=== PATIENT | female | born 1960 | race Caucasian/White ===

== ENCOUNTER 2020-01-05 12:55 | Outpatient (REF) | payer MEDICARE, MEDICAID, SELFPAY ==
--- NOTE | 2020-01-05 | MM_ITS ---
EXAMINATION: MM SCREENING DIGITAL BREAST TOMOSYNTHESIS, BILATERAL CLINICAL INFORMATION: Screening. Asymptomatic. The lifetime risk of breast cancer based on the Tyrer-Cuzick Model is 10.3%. COMPARISON: Mammography: August 11, 2012 and studies dating back to January 18, 2008 TECHNIQUE: Digital breast tomosynthesis is performed in both the craniocaudal and mediolateral oblique views along with computer-aided detection (CAD). Synthesized 2D images are generated from the tomosynthesis. FINDINGS: The breasts are heterogeneously dense, which may obscure small masses (ACR BI-RADS breast composition Category c). There are no significant masses, abnormal calcifications, or other abnormalities. MM/MM tomosynthesis screening BI IMPRESSION: There are no significant changes from prior study. ASSESSMENT: BI-RADS 1: Negative RECOMMENDATION: Routine annual mammography screening. This patient's information was entered into a reminder system with a target due date for their next mammogram.
== END 2020-01-05 12:56 | disposition home or self-care (01) ==
LOC: HO.MAMMO 12:55
PROVIDERS: PCP Physician Assistant Medical; Visit Provider Physician Assistant Medical
DX: Z12.31 Encounter for screening mammogram for malignant neoplasm of breast (principal)
CPT/HCPCS: 77063; 77067

== ENCOUNTER → 2020-04-19 08:43 | Outpatient (BNVA) | payer MEDICARE, MEDICAID, SELFPAY | PROVIDERS: PCP Physician Assistant Medical; Visit Provider Internal Medicine Gastroenterology | CPT/HCPCS: Q3014 ==

== ENCOUNTER → 2020-08-16 10:06 | Outpatient (BNVA) | payer MEDICARE, MEDICAID, SELFPAY | PROVIDERS: PCP Physician Assistant Medical; Visit Provider Internal Medicine Gastroenterology | CPT/HCPCS: Q3014 ==

== ENCOUNTER → 2021-03-14 09:31 | Outpatient (BNVA) | payer MEDICARE, MEDICAID, SELFPAY | PROVIDERS: PCP Physician Assistant Medical; Visit Provider Internal Medicine Gastroenterology | DX: K21.9 Gastro-esophageal reflux disease without esophagitis (principal); R13.10 Dysphagia, unspecified | CPT/HCPCS: 99212 ==

== ENCOUNTER → 2022-03-06 11:54 | Outpatient (BNVA) | payer MEDICARE, MEDICAID, SELFPAY | PROVIDERS: PCP Physician Assistant Medical; Referring Provider Physician Assistant Medical; Visit Provider Internal Medicine Gastroenterology | DX: R13.10 Dysphagia, unspecified (principal); K21.9 Gastro-esophageal reflux disease without esophagitis | CPT/HCPCS: 99212 ==

== ENCOUNTER 2022-11-10 07:55 | Day surgery (SDC) | payer MEDICARE, MEDICAID, SELFPAY ==
[2022-11-05 16:42] VITALS: BMI 28.3
[2022-11-10 08:02] VITALS: BMI 28.3
--- NOTE | 2022-11-10 08:08 | HO.ANESPROP2 ---
HPI - Anesthesia Eval Consult details Narrative: 61 yo female patient for EGD PMFSH Active Problems Active Problems: All Active Problems (Updated 11/10/22 @ 08:08 by Carole Tovar MD) Chronic GERD (Acute) Dysphagia (Acute) Past Medical History Medical History GERD (gastroesophageal reflux disease) Family History Family History Maternal Grandmother Cancer Family history of problems with anesthesia: No Surgical History Surgical History History of esophagogastroduodenoscopy (EGD) H/O colonoscopy History of Problems with Anesthesia: No Social History Social History Household Members: Children Alcohol intake: current Alcohol intake frequency: other Tobacco use type: Cigarette Cigarettes Per Day: 1 Advance Directives: No Advance Directives Information Provided: Yes Meds Allergies Allergy/AdvReac Type Severity Reaction Status Date / Time No Known Allergies Allergy Verified 03/06/22 12:07 [No Known Allergies*] Exam Exam Date and Time: November 10, 2022 0808 Height,Weight and Vital Signs: Height 5 ft 3 in Weight 72.575 kg Vital Signs Temp Pulse Resp BP Pulse Ox O2 Del Method 11/10/22 08:35 96.9 F 74 16 140/78 H 98 Room Air Airway Mallampati Class: II TM Dist: >3cm Neck ROM: Full Denture: Upper and Lower Heart: RRR Lungs: CTAB Assessment and Plan Assessment Anesthesia Assessment: Anesthesia Plan Discussed and Chart Reviewed Final Anesthetic Review Family History of Problems with Anesthesia: No History of Problems with Anesthesia: No NPO: Yes ASA Class: II Final Preanesthetic Review: No Changes in Pt Med Stat, Meds/Allgs Chart Reviewed, Consent Obtained/Reviewed and Anes Risks/Benef Reviewed Patient Risk: Low Procedure Risk: Low Assessment/Block/Sedation in SS: Assess/Block/Sedation-SS Anesthetic Plan Anesthetic Plan: MAC: Disposition: Standard PACU
--- NOTE | 2022-11-10 08:31 | MHC.SHP ---
Pre-Procedural Eval Section A Date of Service: 11/10/22 Section B Chief Complaint: gerd,Dysphagia, unspecified Relevant Family History (Specify if Yes): No Relevant Social History: Tobacco Use Present Medications: see Short Stay Collaborative assessment Medical History: Significant History (GERD (gastroesophageal reflux disease)) History of Previous Operations: Relevant previous surgery/procedure and date(s) (egd,colonoscopy) Allergies: Allergies Allergy/AdvReac Type Severity Reaction Status Date / Time No Known Allergies Allergy Verified 03/06/22 12:07 [No Known Allergies*] Review of Systems Sugical H&P ROS: Negative: Constitution, Cardiovascular, Respiratory, Neurological, Psychiatric, Hem-Onc, Allergic/Immunologic, Gastrointestinal, Genitourinary, Musculoskeletal, Integumentary, Endocrine and Eyes/Ears/Nose/Throat Exam Surgical H&P Exam: Normal: HEENT, Normal: Heart, Normal: Lungs, Normal: Extremities, Normal: Abdomen, Normal: Skin and Normal: Neurological Plan Diagnosis/Plan: Unchanged I have reviewed the history and physical and performed a pertinent physical examination on my patient. No changes have occurred unless specified. Time Spent With Patient Time: Total time managing care of this patient today ____ minutes.
[2022-11-10 08:35] VITALS: BP 140/78; PULSE 74; RESP 16; TEMP 36.1; O2SAT 98
[2022-11-10] MEDS: Lactated Ringers 1,000 ML 100 ML IVCONT (08:37)
--- NOTE | 2022-11-10 09:05 | W.PM.OPN ---
Operative Note Operative Note Date of Service: 11/10/22 Narrative: Procedure Description: EGD Indication: satiety, GERD, epigastric pain Anesthesia: MAC FLEXIBLE TRANSORAL UPPER GASTROINTESTINAL ENDOSCOPY UPPER ENDOSCOPY Consent: Indications for the procedure and potential complications of bleeding, perforation, reaction to medications and missed diagnosis were discussed with the patient and informed consent was obtained. Instrument: Olympus GIF H 190 J mid size upper endoscope Monitoring: Vital signs and clinical assessment, continuous EKG monitoring, Pulse oximetry, Carbon Dioxide monitoring and blood pressure monitoring were done throughout the procedure. Procedure: The patient was placed in the left lateral decubitis position and pre-procedure medications were administered and a bite block was placed. The endoscope was inserted into the mouth and advanced under direct vision to the third part of duodenum. A careful inspection was made as the upper endoscope was withdrawn including a retroflexed examination of the proximal stomach; Findings and interventions are described below. Findings: Larynx:normal Esophagus: GE junction at 38 cm, diaphragm hiatus at 38 cm, lower esophagus dilated with ablloon to 20 mm, no tear seen, bx taken from GEJ and distal esophagus Stomach: Patchy gastric erythema. Biopsies were obtained. Grade 2 flap valve on retroflexed examination of the cardia. Pylorus seemed tight and was stretched with balloon over wire to 20 mm-no tear seen Duodenum: Normal bulb and descending duodenum, bx taken Intervention: Biopsies as noted above, balloon dilation Impression/Findings: gastritis tight pyloric sphincter PLAN: await bx results if H pylori pos then treat
[2022-11-10 09:07] VITALS: BP 114/65; PULSE 94; RESP 16; TEMP 36.2; O2SAT 97
[2022-11-10 09:22] VITALS: BP 135/83; PULSE 90; RESP 16; O2SAT 98
[2022-11-10 09:37] VITALS: BP 131/80; PULSE 77; RESP 16; TEMP 36.2; O2SAT 97
== END 2022-11-10 10:18 | disposition home or self-care (01) ==
PROVIDERS: Visit Provider Internal Medicine Gastroenterology
PROC: 0DJ08ZZ Inspection of Upper Intestinal Tract, Via Natural or Artificial Opening Endoscopic (ICD-10-PCS; CPT 43235; principal; 2022-11-10 09:20)
DX: K29.60 Other gastritis without bleeding (principal); K21.9 Gastro-esophageal reflux disease without esophagitis; R13.10 Dysphagia, unspecified; R14.0 Abdominal distension (gaseous); F17.210 Nicotine dependence, cigarettes, uncomplicated
CPT/HCPCS: 43239; 43249; 43245; 88305; 88342; C1726

== ENCOUNTER → 2022-11-10 07:55 | Outpatient (BNV) | payer MEDICARE, MEDICAID, SELFPAY | PROVIDERS: Visit Provider Internal Medicine Gastroenterology | DX: R10.13 Epigastric pain (principal); K29.70 Gastritis, unspecified, without bleeding | CPT/HCPCS: 43239; 43249 ==

== ENCOUNTER 2022-11-23 10:02 | Outpatient (AMB) | payer MEDICARE, MEDICAID, SELFPAY ==
--- NOTE | 2022-11-23 10:02 | MHC.OFFVIS ---
Intake Intake Visit Reasons: S/p egd Intake Note: Kayleigh presents as a video call today for a follow up egd. CC: She states she is not having any concerns since her procedure. Central Sterile Technician Required: No Allergies No Known Allergies [No Known Allergies*] Allergy (Verified 11/23/22 10:02) HPI S/p egd HPI Details 62 yr old f being called for f/u RECAP:index visit 05/2019 ? Sx going on for 3-4 months ? She went to ED with chest pressure eventually 05/2019 ? felt like food stuck there, feels liek food trying to come back out ? can hurt between breast and top of stomach, shoudlers and back hurt ? she was not having any heartburn before this ? if doesn;t eat doens;t get the pain ? certain foods make her nausea ? cardiac cause was excluded, ECG with no acute changes, some mild sagging of St segments in chest leads ? she was givne omeprazole and sucralfate and now feeling better, can swallow easier but still not back to normal ? appetite is good, weight is going up ? no diarrhea or constipation ? no rectal bleeding or melena ? ? ? she was overall markedly improved since initially seen--felt 90% improved she was taking? omeprazole OD, was unable to take BID she felt good with this dosing I did repeat EGD due to worsening distention EGD: 10/2022 Findings: Larynx:normal Esophagus: GE junction at 38 cm, diaphragm hiatus at 38 cm, lower esophagus dilated with ablloon to 20 mm, no tear seen, bx taken from GEJ and distal esophagus Stomach: Patchy gastric erythema. Biopsies were obtained. Grade 2 flap valve on retroflexed examination of the cardia. Pylorus seemed tight and was stretched with balloon over wire to 20 mm-no tear seen Duodenum: Normal bulb and descending duodenum, bx taken Intervention: Biopsies as noted above, balloon dilation Impression/Findings: gastritis tight pyloric sphincter PLAN: await bx results if H pylori pos then treat PATH: only mild gastritis Other TESTS: Ba swallow 05/2019--unremarkable ? EGD 06/2019: 2 cm sliding hiatal hernia, esophagitis, possible gastroparesis ? BX: chronic esophagitis and inactive gastritis ?INTERIM: she does not have satiey or fullness appetite is good she has no nausea or vomiting she does not have folding feeling she had before in stomach no dysphagia or trouble swallowing ? Assessments ? 1. Dysphagia, 2/2 GERD---tight pyloric sphincter s/p dilation with improvement ? PLAN: 1/ cont with omeprazole 40 gm daily 2/ repeat EGD as needed 3/ advised on taking MV daily PFSH Medical History GERD (gastroesophageal reflux disease) Surgical History History of esophagogastroduodenoscopy (EGD) H/O colonoscopy Family History Maternal Grandmother Cancer Social History Household Members: Children Alcohol intake: current Alcohol intake frequency: other Tobacco use type: Cigarette Cigarettes Per Day: 1 Assessment & Plan Assessment & Plan (1) Chronic GERD: Code(s): K21.9 - Gastro-esophageal reflux disease without esophagitis (2) Dysphagia: Code(s): R13.10 - Dysphagia, unspecified Telehealth Telehealth Location of provider rendering services: practice address Location of patient: address on file Patient Identification confirmed using: Name, : Yes Telehealth method: voice only (vidoe not working) Patient verbally consented to treatment: Yes Patient verbally consented to billing insurance company: Yes Patient informed of any privacy concerns related to visit: Yes Minutes spent on Phone/Video with Pt.: 5 Coding Level of Care Code Tele Est Pt Level 3 (95582) Diagnoses Chronic GERD K21.9 Dysphagia R13.10
== END 2022-11-25 13:32 | disposition home or self-care (01) ==
LOC: HO.HGI 10:02
PROVIDERS: Visit Provider Internal Medicine Gastroenterology
DX: K21.9 Gastro-esophageal reflux disease without esophagitis (principal); R13.10 Dysphagia, unspecified
CPT/HCPCS: 99441

== ENCOUNTER → 2022-11-23 10:02 | Outpatient (BNVA) | payer MEDICARE, MEDICAID, SELFPAY | PROVIDERS: Visit Provider Internal Medicine Gastroenterology ==

== ENCOUNTER 2024-04-03 10:04 | Outpatient (AMB) | payer MEDICARE, MEDICAID, SELFPAY ==
--- NOTE | 2024-04-03 10:08 | MHC.OFFVIS ---
Vital Signs 04/03/24 10:10 Height 5 ft 3 in Weight 157 lb 6 oz BMI 27.9 BP 139/81 Blood Pressure Location Lt brachial Position Sitting Pulse 78 Intake Visit Reasons: Abdominal pain Intake Note: Kayleigh presents in the office as a follow up for abdominal pains. CC: She states that she is having pains in her stomach. She has some constipation but this is something she always has. She gets some GERD as well. Pains in the stomach is in the pigastric and she states it feels like a baby moving - one time she woke up to the burning acid coming up. 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 Sx going on for 3-4 months ? She went to ED with chest pressure eventually 05/2019 ? felt like food stuck there, feels liek food trying to come back out ? can hurt between breast and top of stomach, shoudlers and back hurt ? she was not having any heartburn before this ? if doesn;t eat doens;t get the pain ? certain foods make her nausea ? cardiac cause was excluded, ECG with no acute changes, some mild sagging of St segments in chest leads ? she was givne omeprazole and sucralfate and now feeling better, can swallow easier but still not back to normal ? appetite is good, weight is going up ? no diarrhea or constipation ? no rectal bleeding or melena ? ? ? she was overall markedly improved since initially seen--felt 90% improved she was taking? omeprazole OD, was unable to take BID she felt good with this dosing I did repeat EGD due to worsening distention EGD: 10/2022 Findings: Larynx:normal Esophagus: GE junction at 38 cm, diaphragm hiatus at 38 cm, lower esophagus dilated with balloon to 20 mm, no tear seen, bx taken from GEJ and distal esophagus Stomach: Patchy gastric erythema. Biopsies were obtained. Grade 2 flap valve on retroflexed examination of the cardia. Pylorus seemed tight and was stretched with balloon over wire to 20 mm-no tear seen Duodenum: Normal bulb and descending duodenum, bx taken Intervention: Biopsies as noted above, balloon dilation Impression/Findings: gastritis tight pyloric sphincter PLAN: await bx results if H pylori pos then treat PATH: only mild gastritis Other TESTS: Ba swallow 05/2019--unremarkable ? EGD 06/2019: 2 cm sliding hiatal hernia, esophagitis, possible gastroparesis ? BX: chronic esophagitis and inactive gastritis ?INTERIM: she has epigastric pain and regurgitation, worse when bending she has no nausea or vomiting, she did have for 1 week recently but not now she has stress, several relatives with cancer no dysphagia or trouble swallowing she is taking omeprazole 40 mg OD--unable to take BID as caused pinching sensation she has satiety EXAM: GENERAL: The patient is well developed and nontoxic. VITAL SIGNS:see workflow HEENT: Nonicteric sclerae, PERRLA, EOMI. Oropharynx clear. Moist mucous membranes. Conjunctivae appear well perfused. No thyroid mass. CHEST: Chest wall is nontender. HEART: Regular rate and rhythm without murmurs. LUNGS: Clear to auscultation bilaterally. ABDOMEN: Soft, positive bowel sounds, nontender, no organomegaly.no flank tenderness SKIN: No rash, no excessive bruising, petechiae, or purpura. NEUROLOGIC: Cranial nerves II-XII intact without motor/sensory deficit. Psych: normal affect ? Assessments ? 1. Dysphagia, 2/2 GERD---no a problem 2. Regurgitation and epigastric pain, prior dilation PLAN: 1/ change omeprazole 40 gm daily to esomperazole 20 mg bid 2/ repeat EGD with dilation 3/ check LFT and [facility] Medical History GERD (gastroesophageal reflux disease) Surgical History History of esophagogastroduodenoscopy (EGD) H/O colonoscopy Family History Maternal Grandmother Cancer Social History Household Members: Children Alcohol intake: current Alcohol intake frequency: other Tobacco use type: Cigarette Cigarettes Per Day: 1 Physical Exam Vital Signs: Last Vital Signs Pulse 78 04/03/24 10:10 BP 139/81 04/03/24 10:10 BMI result Body Mass Index 27.9 Assessment & Plan Assessment & Plan (1) Chronic GERD: Code(s): K21.9 - Gastro-esophageal reflux disease without esophagitis Category: Medical Plan: see above (2) Abnormal LFTs: Code(s): R79.89 - Other specified abnormal findings of blood chemistry Category: Medical Plan: see above Orders: Orders Complete Blood Count Auto Diff Today K21.9 - Gastro-esophageal reflux disease without esophagitis, R79.89 - Other specified abnormal findings of blood chemistry Comprehensive Met. Panel Today K21.9 - Gastro-esophageal reflux disease without esophagitis, K75.81 - Nonalcoholic steatohepatitis (JOSHI), R79.89 - Other specified abnormal findings of blood chemistry Hepatitis A,B,C Profile Today K21.9 - Gastro-esophageal reflux disease without esophagitis, R79.89 - Other specified abnormal findings of blood chemistry US abdomen comp w elastography Today K21.9 - Gastro-esophageal reflux disease without esophagitis, R79.89 - Other specified abnormal findings of blood chemistry Medications: New esomeprazole magnesium 20 mg PO BID 90 caps 1RF Coding Level of Care Code Est Pt Level 4 (37420) Diagnoses Chronic GERD K21.9 Abnormal LFTs R79.
[2024-04-03 10:10] VITALS: BP 139/81; PULSE 78; BMI 27.9
--- OUTSIDE RECORDS SUMMARY | 2024-04-03 10:42 | XMS_ITS | Clinical Summary ---
Author Organization [employer] [facility] ity Address [address] [place] [address] Care Team Providers Care Commercial Collections Specialist Name Role Phone Unavailable Primary Care Provider Unavailabl e Social History Tobacco Use Types Packs/Day Years Used Date Smoking Tobacco: Never Assessed Sex and Gender Information Value Date Recorded Sex Assigned at Not on file Gender Identity Not on file Sexual Orientation Not on file Plan of Treatment Health Maintenance Due Date Last Done Comments Breast Cancer Screening 1962 DTaP,Tdap,and Td Vaccines (1 - Tdap) 1981 Cervical Cancer Screening: P ap Smear 09/15/1983 Zoster Vaccines (1 of 2) 2012 Colorectal Cancer Screening: Colonoscopy 02/01/2022 Depression Screening 02/01/2022 HIV Screening 02/01/2022 Hepatitis C Screening 02/01/2022 Social Influencers of Health Screening 02/01/2022 COVID-19 Vaccine ( - 2023-2 5 season) 2023 Influenza Vaccine (#1) 2023 RSV Immunization Patients 60 + Years Old (1 - 1-dose 75+ series) 2037 HIB Vaccines Aged Out No longer eligi ble based on patient's age to complete this topic HPV Vaccines Aged Out No longer eligi ble based on patient's age to complete this topic Hepatitis A Vaccines Aged Out No long er eligible based on patient's age to complete this topic Hepatitis B Vaccines Aged Out No long er eligible based on patient's age to complete this topic IPV Vaccines Aged Out No longer eligi ble based on patient's age to complete this topic MMR Vaccines Aged Out No longer eligi ble based on patient's age to complete this topic Meningococcal ACWY Vaccine Aged Out N o longer eligible based on patient's age to complete this topic Pneumococcal Vaccine: Pediat rics (0 to 5 Years) and At-Risk Patients (6 to 64 Years) Aged Out No longer eligible b ased on patient's age to complete this topic RSV Immunization Patients Un brian 20 months Aged Out No longer eligible b ased on patient's age to complete this topic Varicella Vaccines Aged Out No longer eligible based on patient's age to complete this topic
--- OUTSIDE RECORDS SUMMARY | 2024-04-03 10:43 | XMS_ITS | Clinical Summary ---
Author Organization [facility] Address [address] [place] [address] Care Team Providers Care Bit Welder Name Role Phone Unavailable Primary Care Provider Unavailabl e Source Comments PLEASE NOTE, if this patient is a minor, it may be UNLAWFUL to discuss sensitive information that is contained in these records (such as FAMILY PLANNING, MENTAL HEALTH or SUBSTANCE ABUSE) with the minor patient's parent or other person without the patient's specific authorization.[facility] Allergies No known active allergies Medications cholecalciferol , vitamin D3, 50 mcg (2,000 unit) capsuleIndicati ons:healthy bones Take 1 Cap by mouth once daily Indications: healthy bones 90 Cap 1 01/18/2020 Active lidocaine (LIDODERM) 5 % patchIndication s:Multiple joint pain Place 1 Patch onto the skin every 12 (twelve) hours On and off prn for pain 60 Patch 01/18/2020 Active acetaminophen (TYLENOL 8 HOUR) 650 mg CR tabletIndicatio ns:Multiple joint pain Take 1 Tab by mouth every 8 (eight) hours as needed for pain 90 Tab 01/18/2020 Active metroNIDAZOLE (FLAGYL) 500 mg tabletIndicatio ns:BV (bacterial vaginosis) Take 1 Tablet by mouth 2 (two) times daily 14 Tablet 06/13/2020 Active Active Problems Problem Noted Date Diagnosed Date Hiatal hernia- followed by gastroenterology 12/30 Esophagitis= followed by gastroenterology 2019 Immunizations Name Administration Dates Next Due INFLUENZA, SEASONAL, INJECTABLE, PRESERVATIVE FR EE 10/25/2014 TDAP 01/18/2020 Social History Tobacco Use Types Packs/Day Years Used Date Smoking Tobacco: Every Day Smokeless Tobacco: Never Comments:1 Alcohol Use Standard Drinks/Week Comments Not Currently 0 (1 standard drink = 0.6 oz pur e alcohol) Social Connections Answer Date Recorded Social Connections and Isolation 0 01/18/2020 Financial Resource Strain Answer Date R ecorded Financial Resource Strain 0 2019 Stress Answer Date Recorded Stress 0 01/18/2020 Physical Activity Answer Date Recorded Physical Activity 0 01/18/2020 Food Insecurity Answer Date Recorded Food 0 01/18/2020 Transportation Needs Answer Date Record ed Transportation 0 01/18/2020 Housing Stability Answer Date Recorded Housing 0 01/18/2020 Safety and Environment Answer Date Seven rded Safety 0 01/18/2020 Utilities Answer Date Recorded Utilities 0 01/18/2020 Employment Answer Date Recorded Employment 0 01/18/2020 Comments No Sex and Gender Information Value Date Recorded Sex Assigned at Female 01/18/2020 7:05 AM PST Legal Sex Female 11:20 AM PDT Gender Identity Female 01/18/2020 7:05 AM PST Sexual Orientation Straight 01/18/2020 7: 05 AM PST Last Filed Vital Signs Vital Sign Reading Time Taken Comments Blood Pressure 110/70 06/07/2020 1:10 PM EDT Pulse 87 06/07/2020 1:10 PM EDT Temperature 37.8 ??C (100 ??F) 06/07/2020 1:10 PM EDT Respiratory Rate 16 06/07/2020 1:10 PM EDT Oxygen Saturation 98% 01/18/2020 10: 07 AM EST Inhaled Oxygen Concentration - - Weight 71.6 kg (157 lb 12.8 oz) 06/07/2020 1:10 PM EDT Height 165.1 cm (5' 5 ) 06/07/2020 1:10 PM EDT Body Mass Index 26.26 06/07/2020 1:10 PM EDT Plan of Treatment Not on file [place]
== END 2024-04-03 11:05 | disposition home or self-care (01) ==
PROVIDERS: PCP Family Medicine; Visit Provider Internal Medicine Gastroenterology
DX: K21.9 Gastro-esophageal reflux disease without esophagitis (principal); R79.89 Other specified abnormal findings of blood chemistry
CPT/HCPCS: 99214

== ENCOUNTER 2024-04-03 10:04 | Outpatient (REF) | payer MEDICARE, MEDICAID, SELFPAY ==
[2024-04-03 11:07] LABS: MANUAL DIFF FLAG NO
[2024-04-03 11:12] LABS: Basophils Absolute Auto 0.1 X10*3/uL (0.0-0.2); Basophils Percent Auto 0.7 % (0-2); Eosinophils Absolute Auto 0.1 X10*3/uL (0.0-0.4); Eosinophils Percent Auto 0.8 % (0-4); Hematocrit 37.6 % (37.0-47.0); Hemoglobin 12.8 g/dl (12.0-16.0); Imm Gran Abs Auto 0.03 X10*3/uL (0.00-0.03); Imm Gran Pct Auto 0.4 % (0.0-0.4); Lymphocytes Absolute Auto 2.9 X10*3/uL (1.2-4.9); Lymphocytes Percent Auto 39.5 % (20-40); Mean Corpuscular Hemoglobin 30.3 pg (27.0-33.0); Mean Corpuscular Volume 88.9 fL (80.0-98.0); Mean Platelet Volume 9.6 fL (9.4-12.3); Monocytes Absolute Auto 0.5 X10*3/uL (0.1-1.2); Monocytes Percent Auto 6.9 % (2-11); Neutrophils Absolute Auto 3.9 x10*3/uL (2.0-8.3); Neutrophils Percent Auto 51.7 % (45-73); Platelet Count 357 X10*3/uL (160-400); Red Blood Count 4.23 X10*6/uL (4.20-5.50); Red Cell Distribution Width 12.1 % (11.0-16.0); White Blood Count 7.4 X10*3/uL (4.8-10.8)
--- OUTSIDE RECORDS SUMMARY | 2024-04-03 12:00 | XMS_ITS | Clinical Summary ---
Author Organization [employer] [employer] [facility] ity Address [address] [place] [address] Care Team Providers Care Senior Support Engineer Name Role Phone Unavailable Primary Care Provider [...]
--- OUTSIDE RECORDS SUMMARY | 2024-04-03 12:00 | XMS_ITS | Clinical Summary ---
Author Organization [facility] Address [address] [place] [address] Care Team Providers Care Clothing And Textiles Teacher Name Role Phone Unavailable Primary Care Provider [...] Plan of Treatment Not on file [place]
[2024-04-03 12:32] LABS: Alanine Aminotransferase 77 U/L (0-31); Albumin Level 3.9 g/dL (3.5-5.0); Alkaline Phosphatase 115 U/L (39-117); Anion Gap 10 (12-20); Aspartate Amino Transferase 69 U/L (5-31); Bilirubin Total 0.4 mg/dL (0.0-1.0); Blood Urea Nitrogen 14 mg/dL (9-16); Carbon Dioxide 29 mmol/L (22-29); Chloride 105 mmol/L (96-108); Estimated Glomerular Filt Rate > 60; Glucose Random 103 mg/dL (60-115); Potassium 4.4 mmol/L (3.3-5.1); Sodium 140 mmol/L (135-145); Total Protein 8.3 g/dL (6.5-8.0)
[2024-04-04 08:22] LABS: HBS Num1 0.48 mIU/mL (0-7.99); HBc Num1 0.18 S/CO (0.00-0.79); HBsAGNum1 1.13 S/CO (0.00-0.99); Hepatitis A Antibody IgM 0.17 Index (0-0.79); Hepatitis B Core Antibody Nonreactive (Nonreactive); ~HepC Num1 15.32 S/CO (0.00-0.79); ~Hepatitis A Antibody IgM Nonreactive (Nonreactive); ~Hepatitis B Surface Antibody NONREACTIVE (Nonreactive); ~Hepatitis C Antibody Reactive (Nonreactive)
[2024-04-04 10:18] LABS: HBsAGNum2 Nonreactive
[2024-04-04 10:19] LABS: HBsAGNum3 Nonreactive; Hepatitis B Surface Antigen NEGATIVE (Negative)
== END 2024-04-03 10:05 | disposition home or self-care (01) ==
LOC: HO.LAB 10:04
PROVIDERS: PCP Family Medicine; Visit Provider Internal Medicine Gastroenterology
DX: K21.9 Gastro-esophageal reflux disease without esophagitis (principal); R79.89 Other specified abnormal findings of blood chemistry; K75.81 Nonalcoholic steatohepatitis (NASH)
CPT/HCPCS: 36415; 80053; 85025; 86704; 86706; 86709; 86803; 87340; 99212

== ENCOUNTER 2024-04-04 08:09 | Day surgery (SDC) | payer MEDICARE, MEDICAID, SELFPAY ==
--- NOTE | 2024-04-03 13:35 | HO.ANESPROP2 ---
Documented by User: Geovanna Gold NP 04/03/24 13:35 HPI - Anesthesia Eval Consult details Narrative: 63yo F for Upper Endoscopy PMFSH Active Problems Active Problems: All Active Problems Abnormal LFTs (Acute) Chronic GERD (Acute) Dysphagia (Acute) Past Medical History Medical History delivery delivered GERD (gastroesophageal reflux disease) Family History Family History Maternal Grandmother Cancer Family history of problems with anesthesia: No Surgical History Surgical History History of carpal tunnel surgery History of shoulder surgery History of esophagogastroduodenoscopy (EGD) H/O colonoscopy History of Problems with Anesthesia: No Social History Social History Household Members: Children Alcohol intake: current Alcohol intake frequency: other Patient Tobacco Use Status: Current everyday Tobacco user Tobacco use type: Cigarette Cigarettes Per Day: 1 Use of substances other than those prescribed or required for medical reasons: No Are you DNR?: No Advance Directives: No Advance Directives Information Provided: Yes Recently lost weight without trying: No Nutrition Risks: No Nutritional Risk Patient : No Meds Allergies Allergy/AdvReac Type Severity Reaction Status Date / Time No Known Allergies Allergy Verified 04/03/24 10:12 [No Known Allergies*] Assessment and Plan Assessment Anesthesia Assessment: Chart Reviewed Final Anesthetic Review Family History of Problems with Anesthesia: No History of Problems with Anesthesia: No Documented by User: Carole Tovar MD 04/04/24 10:40 PMFSH Active Problems Active Problems: All Active Problems Abnormal LFTs (Acute) Chronic GERD (Acute) Dysphagia (Acute) Smoker. Last cigarette 2 days ago Past Medical History Medical History delivery delivered GERD (gastroesophageal reflux disease) Family History Family History Maternal Grandmother Cancer Family history of problems with anesthesia: No Surgical History Surgical History History of carpal tunnel surgery History of shoulder surgery History of esophagogastroduodenoscopy (EGD) H/O colonoscopy History of Problems with Anesthesia: No Social History Social History Household Members: Children Alcohol intake: current Alcohol intake frequency: other Patient Tobacco Use Status: Current everyday Tobacco user Tobacco use type: Cigarette Cigarettes Per Day: 1 Use of substances other than those prescribed or required for medical reasons: No Are you DNR?: No Advance Directives: No Advance Directives Information Provided: Yes Recently lost weight without trying: No Nutrition Risks: No Nutritional Risk Patient : No Meds Allergies Allergy/AdvReac Type Severity Reaction Status Date / Time No Known Allergies Allergy Verified 04/03/24 10:12 [No Known Allergies*] Exam Height,Weight and Vital Signs: Height 5 ft 3 in Weight 72.4 kg Vital Signs Temp Pulse Resp BP Pulse Ox O2 Del Method 04/04/24 10:00 99.0 F 68 16 143/86 H 98 Room Air Airway Mallampati Class: III TM Dist: >3cm Neck ROM: Full Denture: Upper Loose/Missing/Broken Teeth: Yes (Dentures top. No teeth bottom) Heart: RRR Lungs: CTAB Assessment and Plan Assessment Anesthesia Assessment: Anesthesia Plan Discussed and Chart Reviewed Final Anesthetic Review Family History of Problems with Anesthesia: No History of Problems with Anesthesia: No NPO: Yes ASA Class: II Final Preanesthetic Review: No Changes in Pt Med Stat, Meds/Allgs Chart Reviewed, Consent Obtained/Reviewed and Anes Risks/Benef Reviewed Patient Risk: Low Procedure Risk: Low Assessment/Block/Sedation in SS: Assess/Block/Sedation-SS Anesthetic Plan Anesthetic Plan: TIVA Disposition: Standard PACU
--- OUTSIDE RECORDS SUMMARY | 2024-04-04 08:12 | XMS_ITS | Clinical Summary ---
Author Organization [facility] Address [address] [place] [address] Care Team Providers Care Clinical Education Coordinator Name Role Phone Unavailable Primary Care Provider [...] Plan of Treatment Not on file Insurance [place]
--- OUTSIDE RECORDS SUMMARY | 2024-04-04 08:12 | XMS_ITS | Clinical Summary ---
Author Organization [facility] ity Address [address] [place] [address] Care Team Providers Care Supervisor [employer] Name Role Phone Unavailable Primary Care Provider [...]
[2024-04-04 09:33] VITALS: BMI 28.3
[2024-04-04 10:00] VITALS: BP 143/86; PULSE 68; RESP 16; TEMP 37.2; O2SAT 98
[2024-04-04] MEDS: Lactated Ringers 1,000 ML 100 ML IVCONT (10:08)
--- NOTE | 2024-04-04 10:25 | MHC.SHP ---
Pre-Procedural Eval Section A - 24 Hr Update-Section A only Date of Service: 04/04/24 The patient is an INPATIENT: No The patient has been examined within 24 hours of the surgical procedure. The History & Physical has been completed within 30 days and I have reviewed it.: Yes Section B - Complete if H&P > 30 days Chief Complaint: Gastro-esophageal reflux disease without esophagit Allergies: Allergies Allergy/AdvReac Type Severity Reaction Status Date / Time No Known Allergies Allergy Verified 04/03/24 10:12 [No Known Allergies*] Plan Diagnosis/Plan: Unchanged I have reviewed the history and physical and performed a pertinent physical examination on my patient. No changes have occurred unless specified. Time Spent With Patient Time: Total time managing care of this patient today ____ minutes.
--- NOTE | 2024-04-04 10:56 | W.PM.OPN ---
Operative Note Operative Note Date of Service: 04/04/24 Narrative: Procedure Description: EGD Indication: epigastric pain Anesthesia: MAC FLEXIBLE TRANSORAL UPPER GASTROINTESTINAL ENDOSCOPY UPPER ENDOSCOPY Consent: Indications for the procedure and potential complications of bleeding, perforation, reaction to medications and missed diagnosis were discussed with the patient and informed consent was obtained. Instrument: Olympus GIF H 190 J mid size upper endoscope Monitoring: Vital signs and clinical assessment, continuous EKG monitoring, Pulse oximetry, Carbon Dioxide monitoring and blood pressure monitoring were done throughout the procedure. Procedure: The patient was placed in the left lateral decubitis position and pre-procedure medications were administered and a bite block was placed. The endoscope was inserted into the mouth and advanced under direct vision to the third part of duodenum. A careful inspection was made as the upper endoscope was withdrawn including a retroflexed examination of the proximal stomach; Findings and interventions are described below. Findings: Larynx:normal Esophagus: GE junction at 38 cm, diaphragm hiatus at 38 cm, , bx taken from distal esophagus Stomach: Patchy gastric erythema with granualr mucosa. Biopsies were obtained. Grade 2 flap valve on retroflexed examination of the cardia. Pylorus seemed tight and was stretched with balloon over wire to 19 mm-no tear seen but resistance felt Duodenum: Normal bulb and descending duodenum, bx taken Intervention: Biopsies as noted above, balloon dilation with wire guided balloon Impression/Findings: gastritis tight pyloric sphincter PLAN: await bx results if H pylori pos then treat if bx neg for H pylori then urea breath test
[2024-04-04 11:03] VITALS: BP 102/65; PULSE 74; RESP 17; TEMP 36.1; O2SAT 96
[2024-04-04 11:18] VITALS: BP 111/66; PULSE 67; RESP 16; TEMP 36.1; O2SAT 98
== END 2024-04-04 11:45 | disposition home or self-care (01) ==
PROVIDERS: PCP Family Medicine; Visit Provider Internal Medicine Gastroenterology
PROC: 0DJ08ZZ Inspection of Upper Intestinal Tract, Via Natural or Artificial Opening Endoscopic (ICD-10-PCS; CPT 43235; principal; 2024-04-04 11:00)
DX: R10.13 Epigastric pain (principal); R68.81 Early satiety; K31.1 Adult hypertrophic pyloric stenosis; K29.50 Unspecified chronic gastritis without bleeding; K21.9 Gastro-esophageal reflux disease without esophagitis; K44.9 Diaphragmatic hernia without obstruction or gangrene; R79.89 Other specified abnormal findings of blood chemistry; Z79.899 Other long term (current) drug therapy; Z98.890 Other specified postprocedural states
CPT/HCPCS: 43245; 43239; 88305; C1726; J2003; J2704

== ENCOUNTER → 2024-04-04 08:09 | Outpatient (BNV) | payer MEDICARE, MEDICAID, SELFPAY | PROVIDERS: PCP Family Medicine; Visit Provider Internal Medicine Gastroenterology | DX: K29.70 Gastritis, unspecified, without bleeding (principal); K31.1 Adult hypertrophic pyloric stenosis | CPT/HCPCS: 43239; 43245 ==

== ENCOUNTER 2024-04-10 14:07 | Outpatient (REF) | payer MEDICARE, MEDICAID, SELFPAY ==
--- OUTSIDE RECORDS SUMMARY | 2024-04-10 15:19 | XMS_ITS | Clinical Summary ---
Author Organization [facility] Address [address] [place] [address] Care Team Providers Care Ribbon Cutter Name Role Phone Unavailable Primary Care Provider [...] Plan of Treatment Not on file [place]
--- OUTSIDE RECORDS SUMMARY | 2024-04-10 15:19 | XMS_ITS | Clinical Summary ---
[facility] [address] [place] [address] Care Team Providers Care Biometric Technician Name Role Phone Unavailable Primary Care Provider Unavailabl e Social History Tobacco Use Types Packs/Day Years Used Date Smoking Tobacco: Never Assessed Comments Unknown Sex and Gender Information Value Date Recorded Sex Assigned at Not on file Legal Sex Female 9:04 AM EST Gender Identity Not on file Sexual Orientation Not on file Plan of Treatment Health Maintenance Due Date Last Done Comments Breast Cancer Screening 1960 DTaP,Tdap,and Td Vaccines (1 - Tdap) 1969 Cervical Cancer Screening: P ap Smear 09/15/1983 Pneumococcal Vaccine: 50+ Ye ars (1 of 1 - PCV) 2012 Zoster Vaccines (1 of 2) 2012 Colorectal Cancer Screening: Colonoscopy 02/01/2022 Depression Screening 02/01/2022 HIV Screening 02/01/2022 Hepatitis C Screening 02/01/2022 Social Influencers of Health Screening 02/01/2022 COVID-19 Vaccine (1 - 2023-2 5 season) 2023 Influenza Vaccine [...] patient's age to complete this topic Meningococcal B Vacine Aged Out No lo nger eligible based on patient's age to complete [...]
[2024-04-11 22:54] LABS: HepC Viral Load 400000 IU/mL (NOT DETECTED)
[2024-04-16 12:53] LABS: Hepatitis C Genotype 4
== END 2024-04-10 14:08 | disposition home or self-care (01) ==
LOC: HO.LAB 14:07
PROVIDERS: PCP Family Medicine; Visit Provider Internal Medicine Gastroenterology
DX: R79.89 Other specified abnormal findings of blood chemistry (principal)
CPT/HCPCS: 36415; 87522; 87902

== ENCOUNTER 2024-04-26 10:27 | Outpatient (REF) | payer MEDICARE, MEDICAID, SELFPAY ==
--- OUTSIDE RECORDS SUMMARY | 2024-04-26 18:48 | XMS_ITS | Clinical Summary ---
[facility] [address] [place] [address] Care Team Providers Care Salesperson [employer] Name Role Phone Unavailable Primary Care Provider [...]
--- OUTSIDE RECORDS SUMMARY | 2024-04-26 18:48 | XMS_ITS | Clinical Summary ---
Author Organization [facility] Address [address] [place] [address] Care Team Providers Care Pulmonary Nurse Practitioner Name Role Phone Unavailable Primary Care Provider [...] Plan of Treatment Not on file [place]
[2024-04-27 10:48] LABS: H Pylori Breath Test Negative (Negative)
== END 2024-04-26 10:28 | disposition home or self-care (01) ==
LOC: HO.LNP 10:27
PROVIDERS: PCP Family Medicine; Visit Provider Internal Medicine Gastroenterology
DX: K21.9 Gastro-esophageal reflux disease without esophagitis (principal); R13.10 Dysphagia, unspecified
CPT/HCPCS: 83013; 99211

== ENCOUNTER 2024-04-26 10:27 | Outpatient (AMB) | payer MEDICARE, MEDICAID, SELFPAY ==
--- NOTE | 2024-04-26 10:57 | AM.OFFVISNUR ---
Intake Visit Reasons: H Pylori Allergies No Known Allergies [No Known Allergies*] Allergy (Verified 04/03/24 10:12) Nursing Note Patient presents for collection of H Pylori breath test. Patient has been fasting for 1 hour (nothing to eat, drink, no chewing gum or smoking) has not taken any antacid medication for at least 2 weeks and has no allergies to artificial sweeteners. Assessment & Plan Assessment & Plan (1) Chronic GERD: Code(s): K21.9 - Gastro-esophageal reflux disease without esophagitis Category: Medical (2) Dysphagia: Code(s): R13.10 - Dysphagia, unspecified Category: Medical Plan Patient presents for collection of H Pylori breath test. Patient has been fasting for 1 hour (nothing to eat, drink, no chewing gum or smoking) has not taken any antacid medication for at least 2 weeks and has no allergies to artificial sweeteners.???This test checks for an overgrowth of bacteria in your stomach. We all have bacteria but some may have more than others. It is treatable. if the test comes back negative there is nothing else to do. If the test result is positive we will treat you with 2 antibiotics and a medication to decrease the acid in your stomach (PPI) for 2 weeks. Two weeks after you have completed the treatment we will retest you to make sure the overgrowth has resolved. Patient Instructions: Process for specimen collection and reason for testing was explained to the patient. Specimen collection. Patient instructed to take a deep breath and then exhale into the blue bag, filling it up as much as possible. Patient instructed to drink a mixture of water and the artificial sweetener with a straw. A 15 minute wait period was observed. Patient instructed to take a deep breath and then exhale into the pink bag, filling it up as much as possible.?? Coding Level of Care Code Established Pt Est Pt Level 1 (40292) Patient Type Established Medical Decision Making Straight Forward Diagnoses Chronic GERD K21.9 Dysphagia R13.10
--- OUTSIDE RECORDS SUMMARY | 2024-04-26 12:50 | XMS_ITS | Clinical Summary ---
[facility] [address] [place] [address] Care Team Providers Care Distillation Operator Name Role Phone Unavailable Primary Care Provider [...]
--- OUTSIDE RECORDS SUMMARY | 2024-04-26 12:50 | XMS_ITS | Clinical Summary ---
Author Organization [facility] Address [address] [place] [address] Care Team Providers Care Information Assurance Analyst Name Role Phone Unavailable Primary Care Provider [...] Plan of Treatment Not on file [place]
== END 2024-04-26 11:10 | disposition home or self-care (01) ==
PROVIDERS: PCP Family Medicine; Visit Provider Internal Medicine Gastroenterology
DX: K21.9 Gastro-esophageal reflux disease without esophagitis (principal); R13.10 Dysphagia, unspecified

== ENCOUNTER 2024-05-05 09:45 | Outpatient (REF) | payer MEDICARE, MEDICAID, SELFPAY ==
--- NOTE | ~2024-05-05 | US_ITS ---
EXAMINATION: US ABDOMEN COMPLETE WITH LIVER ELASTOGRAPHY HISTORY: K21.9 - ABNORMAL LFTS TECHNIQUE: Real-time grayscale ultrasound imaging of the abdomen was performed and images were reviewed. COMPARISON: There are no prior studies for comparison. FINDINGS: Liver: The right lobe of the liver measures 14.3 cm in size. The left lobe of the liver measures 11.2 cm in size. The liver demonstrates normal homogeneous echotexture. No focal mass or intrahepatic biliary ductal dilatation is identified. There is normal hepatopedal flow in the portal vein. Ultrasound elastography of the liver was performed with 10 separate measurements of the liver parenchyma with the patient in the supine position. Measurements were obtained approximately 2 cm below Vahid's capsule and perpendicular to the capsule. Images are of satisfactory quality. The median shear wave velocity is 1.78 m/s. The interquartile range/median (IQR/median) is 0.10. Gallbladder and biliary tree: The gallbladder is unremarkable, without evidence of calculi, wall thickening, or pericholecystic fluid. There is no sonographic Merrill sign. The common bile duct is normal in caliber measuring 5 mm. Kidneys: The right kidney measures 11.1 cm in length. The left kidney measures 11.7 cm in length. The kidneys are unremarkable, without evidence of masses, hydronephrosis, or calculi. Pancreas: The pancreatic head, neck, and body are unremarkable. The pancreatic tail is obscured by bowel gas. Spleen: The spleen is normal in size and contour, measuring 8.9 cm in length. Abdominal aorta and inferior vena cava: The visualized portions of the abdominal aorta and inferior vena cava are normal in caliber. There is no free fluid in the abdomen. US/US abdomen comp w elastography IMPRESSION: Unremarkable abdominal ultrasound. The median shear wave velocity in the liver is 1.78 m/s, corresponding to a median liver stiffness of 9.54 kPa. The IQR/median value is 0.10. This is indicative of a quality data set. Findings are indicative of a high elastography value suggestive of compensated advanced chronic liver disease. REFERENCE: Society of Radiologists in Ultrasound Liver Stiffness Thresholds (2020): LIVER STIFFNESS THRESHOLDS: *Shear wave velocity less than 1.3 m/s (Liver Stiffness equal or less than 5 kPa): High probability of being normal. *Shear wave velocity less than 1.7 m/s (Liver Stiffness less than 9 kPa): In the absence of other known clinical signs, rules out compensated advanced chronic liver disease. *Shear wave velocity between 1.7-2.1 m/s (Liver Stiffness 9-13 kPa): Suggestive of compensated advanced chronic liver disease but need further test for confirmation. *Shear wave velocity between 2.1-2.4 m/s (Liver Stiffness 13-17 kPa): Rules in compensated advanced chronic liver disease. *Shear wave velocity greater than 2.4 m/s (Liver Stiffness over 17 kPa): Suggestive of clinically significant portal hypertension. QUALITY OF DATA SET: *IQR/Median value equal or less than 0.15 implies a quality data set. *IQR/Median value over 0.15 implies a poor quality data set. SIGNIFICANT CHANGE FROM PRIOR EXAM: Significant change if liver stiffness measurement is 10% or greater from prior exam. OTHER CONSIDERATIONS: The stage of liver fibrosis may be overestimated in the setting of acute hepatitis, liver inflammation, elevated liver function tests, hepatic vascular congestion, obstructive cholestasis, non-fasting state, and infiltrative diseases such as amyloidosis and lymphoma. In some patients with NAFLD, the liver stiffness thresholds for compensated advanced chronic liver disease may be lower. In causes other than viral hepatitis and NAFLD, liver stiffness thresholds are not well established. Electronically signed by: Dae Thomas MD 05/05/2024 02:18 PM [facility]
--- OUTSIDE RECORDS SUMMARY | 2024-05-05 10:40 | XMS_ITS | Clinical Summary ---
[facility] Address [address] [place] [address] Care Team Providers Care Line Mover Name Role Phone Unavailable Primary Care Provider [...]
--- OUTSIDE RECORDS SUMMARY | 2024-05-05 10:40 | XMS_ITS | Clinical Summary ---
Author Organization [facility] Address [address] [place] [address] Care Team Providers Care Lamp Mechanic Name Role Phone Unavailable Primary Care Provider [...] Plan of Treatment Not on file [place]
== END 2024-05-05 09:46 | disposition home or self-care (01) ==
LOC: HO.US 09:45
PROVIDERS: PCP Family Medicine; Visit Provider Internal Medicine Gastroenterology
DX: K21.9 Gastro-esophageal reflux disease without esophagitis (principal); R79.89 Other specified abnormal findings of blood chemistry
CPT/HCPCS: 76700; 76981

== ENCOUNTER → 2024-05-05 09:46 | Outpatient (BNV) | payer MEDICARE, MEDICAID, SELFPAY | PROVIDERS: PCP Family Medicine; Visit Provider Radiology Diagnostic Radiology | DX: K21.9 Gastro-esophageal reflux disease without esophagitis (principal); R74.01 Elevation of levels of liver transaminase levels | CPT/HCPCS: 76700; 76981 ==

== ENCOUNTER 2024-08-07 13:10 | Outpatient (AMB) | payer MEDICARE, MEDICAID, SELFPAY ==
--- NOTE | 2024-08-07 13:11 | MHC.OFFVIS ---
Vital Signs 08/07/24 13:19 Height 5 ft 3 in Weight 160 lb 14.999 oz BMI 28.5 BP 118/76 Blood Pressure Location Lt brachial Position Sitting Pulse 77 Intake Visit Reasons: f/u EGD Intake Note: Kayleigh presents in the office as a follow up EGD. CC: She states that she has stomach bloating and wants to lose weight. Mobile Lounge Driver Or Operator Required: No Allergies No Known Allergies [No Known Allergies*] Allergy (Verified 04/03/24 10:12) HPI HPI f/u EGD: Details: 63 yr old f being seen for f/u RECAP:index visit 05/2019 Sx going on for 3-4 months She went to ED with chest pressure eventually 05/2019 felt like food stuck there, feels liek food trying to come back out can hurt between breast and top of stomach, shoudlers and back hurt she was not having any heartburn before this if doesn;t eat doens;t get the pain certain foods make her nausea cardiac cause was excluded, ECG with no acute changes, some mild sagging of St segments in chest leads she was givne omeprazole and sucralfate and now feeling better, can swallow easier but still not back to normal appetite is good, weight is going up no diarrhea or constipation no rectal bleeding or melena she was overall markedly improved since initially seen--felt 90% improved she was taking omeprazole OD, was unable to take BID she felt good with this dosing I did repeat EGD due to worsening distention EGD: 10/2022 Findings: Larynx:normal Esophagus: GE junction at 38 cm, diaphragm hiatus at 38 cm, lower esophagus dilated with balloon to 20 mm, no tear seen, bx taken from GEJ and distal esophagus Stomach: Patchy gastric erythema. Biopsies were obtained. Grade 2 flap valve on retroflexed examination of the cardia. Pylorus seemed tight and was stretched with balloon over wire to 20 mm-no tear seen Duodenum: Normal bulb and descending duodenum, bx taken Intervention: Biopsies as noted above, balloon dilation Impression/Findings: gastritis tight pyloric sphincter PATH: only mild gastritis Other TESTS: Ba swallow 05/2019--unremarkable EGD 06/2019: 2 cm sliding hiatal hernia, esophagitis, possible gastroparesis BX: chronic esophagitis and inactive gastritis I repeated EGD with dilation 04/04/24 due to sx H pylori--negative breath test She was pos was Hep C and she had treatment epclusa INTERIM: if she eats to close to bedtime she throws up acid, still had to stop PPI due to epclusa she has been trying more diet measures and this helps she is planning to go for liposuction she cant do a colonoscopy due to prep EXAM: GENERAL: The patient is well developed and nontoxic. VITAL SIGNS:see workflow HEENT: Nonicteric sclerae, PERRLA, EOMI. Oropharynx clear. Moist mucous membranes. Conjunctivae appear well perfused. No thyroid mass. CHEST: Chest wall is nontender. HEART: Regular rate and rhythm without murmurs. LUNGS: Clear to auscultation bilaterally. ABDOMEN: Soft, positive bowel sounds, nontender, no organomegaly.no flank tenderness SKIN: No rash, no excessive bruising, petechiae, or purpura. NEUROLOGIC: Cranial nerves II-XII intact without motor/sensory deficit. Psych: normal affect Assessments 1. Dysphagia, 2/2 GERD---no a problem 2. Regurgitation and epigastric pain, s/p dilation 3. Hep C s/p epclusa PLAN: 1/ can go back on esomperazole 20 mg 2/ repeat EGD with dilation prn 3/ check nutrient levels as she is c/o hair loss [facility] Medical History delivery delivered GERD (gastroesophageal reflux disease) Surgical History History of carpal tunnel surgery History of shoulder surgery History of esophagogastroduodenoscopy (EGD) H/O colonoscopy Family History Maternal Grandmother Cancer Social History Household Members: Children Alcohol intake: current Alcohol intake frequency: other Patient Tobacco Use Status: Current everyday Tobacco user Tobacco use type: Cigarette Cigarettes Per Day: 1 Physical Exam Vital Signs: BMI result Body Mass Index 28.5 Assessment & Plan Assessment & Plan (1) Abnormal LFTs: Code(s): R79.89 - Other specified abnormal findings of blood chemistry Category: Medical Plan: as above Orders: Orders TSH reflex Free T4 Today - Other specified abnormal findings of blood chemistry Complete Blood Count Auto Diff Today - Other specified abnormal findings of blood chemistry Ferritin Today - Other specified abnormal findings of blood chemistry Vitamin B12 and Folate Today - Other specified abnormal findings of blood chemistry Vitamin B3 (Niacin) Today . - Other specified abnormal findings of blood chemistry Vitamin B5 (Pantothenic Acid) Today - Other specified abnormal findings of blood chemistry Vitamin D 25-OH Total Today - Other specified abnormal findings of blood chemistry Vitamin K1 Today - Other specified abnormal findings of blood chemistry Zinc Today - Other specified abnormal findings of blood chemistry C Reactive Protein Today - Other specified abnormal findings of blood chemistry Comprehensive Met. Panel Today K75.81 - Nonalcoholic steatohepatitis (JOSHI), R7 - Other specified abnormal findings of blood chemistry Vitamin A Today - Other specified abnormal findings of blood chemistry Vitamin B1 Today - Other specified abnormal findings of blood chemistry Vitamin B6 Today - Other specified abnormal findings of blood chemistry Vitamin C Today - Other specified abnormal findings of blood chemistry Vitamin E Today - Other specified abnormal findings of blood chemistry Hepatitis C Viral Load 3 Months . - Other specified abnormal findings of blood chemistry Medications: New esomeprazole magnesium 20 mg PO DAILY 30 caps 3RF Coding Level of Care Code Est Pt Level 4 (35072) Diagnoses Abnormal LFTs
[2024-08-07 13:19] VITALS: BP 118/76; PULSE 77; BMI 28.5
--- OUTSIDE RECORDS SUMMARY | 2024-08-07 14:52 | XMS_ITS | Clinical Summary ---
[facility] Address [address] [place] [address] Care Team Providers Care Track Welder Name Role Phone Unavailable Primary Care [...] - 2023-2 5 season) 2023 Influenza Vaccine (Season Ended) 2024 RSV Immunization Adult Patie nts (1 - 1-dose 75+ series) 2037 HIB [...] age to complete this topic Meningococcal B Vaccine Aged Out No l onger eligible based on patient's age to complete [...]
== END 2024-08-07 13:51 | disposition home or self-care (01) ==
LOC: HO.HGI 13:10
PROVIDERS: PCP Family Medicine; Visit Provider Internal Medicine Gastroenterology
DX: R79.89 Other specified abnormal findings of blood chemistry (principal)
CPT/HCPCS: 99214

== ENCOUNTER 2024-08-07 13:10 | Outpatient (REF) | payer MEDICARE, MEDICAID, SELFPAY | END 2024-08-07 13:11 | disposition home or self-care (01) | LOC: HO.LAB 13:10 | PROVIDERS: PCP Family Medicine; Visit Provider Internal Medicine Gastroenterology | DX: R79.89 Other specified abnormal findings of blood chemistry (principal) | CPT/HCPCS: 99212 ==

== ENCOUNTER 2025-01-08 13:28 | Outpatient (AMB) | payer MEDICARE, MEDICAID, SELFPAY ==
--- NOTE | 2025-01-08 13:54 | MHC.OFFVIS ---
Vital Signs 01/08/25 14:01 Height 5 ft 3 in Weight 157 lb BMI 27.8 BP 141/78 H Blood Pressure Location Lt brachial Position Sitting Pulse 77 Intake Visit Reasons: 4 mo f/u Intake Note: Patient 4 month follow up for acid reflux. Patient cc: acid reflux on and off, denies any other GI issues. 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 Accompanied by: Self / Same As Patient Allergies No Known Allergies (No Known Allergies*) Allergy (Verified 01/08/25 13:54) HPI HPI 4 mo f/u: Details: 64 yr old f being seen for f/u RECAP:index visit 05/2019 Sx going on for 3-4 months She went to ED with chest pressure eventually 05/2019 felt like food stuck there, feels liek food trying to come back out can hurt between breast and top of stomach, shoudlers and back hurt she was not having any heartburn before this if doesn;t eat doens;t get the pain certain foods make her nausea cardiac cause was excluded, ECG with no acute changes, some mild sagging of St segments in chest leads she was givne omeprazole and sucralfate and now feeling better, can swallow easier but still not back to normal appetite is good, weight is going up no diarrhea or constipation no rectal bleeding or melena she was overall markedly improved since initially seen--felt 90% improved she was taking omeprazole OD, was unable to take BID she felt good with this dosing I did repeat EGD due to worsening distention EGD: 10/2022 Findings: Larynx:normal Esophagus: GE junction at 38 cm, diaphragm hiatus at 38 cm, lower esophagus dilated with balloon to 20 mm, no tear seen, bx taken from GEJ and distal esophagus Stomach: Patchy gastric erythema. Biopsies were obtained. Grade 2 flap valve on retroflexed examination of the cardia. Pylorus seemed tight and was stretched with balloon over wire to 20 mm-no tear seen Duodenum: Normal bulb and descending duodenum, bx taken Intervention: Biopsies as noted above, balloon dilation Impression/Findings: gastritis tight pyloric sphincter PATH: only mild gastritis Other TESTS: Ba swallow 05/2019--unremarkable EGD 06/2019: 2 cm sliding hiatal hernia, esophagitis, possible gastroparesis BX: chronic esophagitis and inactive gastritis I repeated EGD with dilation 04/04/24 due to sx H pylori--negative breath test She was pos was Hep C and she had treatment epclusa INTERIM: if she eats to close to bedtime she throws up acid, still had to stop PPI due to epclusa she has been trying more diet measures and this helps she is planning to go for liposuction she cant do a colonoscopy due to prep EXAM: GENERAL: The patient is well developed and nontoxic. VITAL SIGNS:see workflow HEENT: Nonicteric sclerae, PERRLA, EOMI. Oropharynx clear. Moist mucous membranes. Conjunctivae appear well perfused. No thyroid mass. CHEST: Chest wall is nontender. HEART: Regular rate and rhythm without murmurs. LUNGS: Clear to auscultation bilaterally. ABDOMEN: Soft, positive bowel sounds, nontender, no organomegaly.no flank tenderness SKIN: No rash, no excessive bruising, petechiae, or purpura. NEUROLOGIC: Cranial nerves II-XII intact without motor/sensory deficit. Psych: normal affect Assessments 1. Dysphagia, 2/2 GERD---no a problem 2. Regurgitation and epigastric pain, s/p dilation 3. Hep C s/p epclusa PLAN: 1/ can go back on esomperazole 20 mg --ordered again 2/ repeat EGD with dilation prn 3/ check nutrient levels as she is c/o hair loss --but better since changing shampoo 4/ check for Hep C cure 5/ adviwed can try ani thistmaine as she has strange reaction of nose bleeds if overeats, advised on smaller portions too PFSH Medical History delivery delivered GERD (gastroesophageal reflux disease) Surgical History History of carpal tunnel surgery History of shoulder surgery History of esophagogastroduodenoscopy (EGD) H/O colonoscopy Family History Maternal Grandmother Cancer Social History Household Members: Children Alcohol intake: current Alcohol intake frequency: other Patient Tobacco Use Status: Current everyday Tobacco user Tobacco use type: Cigarette Cigarettes Per Day: 1 Physical Exam Vital Signs: Last Vital Signs Pulse 77 01/08/25 14:01 BP 141/78 H 11/10/25 14:01 BMI result Body Mass Index 27.8 Assessment & Plan Assessment & Plan (1) Chronic GERD: Code(s): K21.9 - Gastro-esophageal reflux disease without esophagitis Category: Medical Plan: as above (2) Abnormal LFTs: Code(s): R79.89 - Other specified abnormal findings of blood chemistry Category: Medical Plan: as above Medications: Refilled esomeprazole magnesium 20 mg PO DAILY 30 caps 3RF Coding Level of Care Code Est Pt Level 3 (75520) Diagnoses Chronic GERD K21.9 Abnormal LFTs R79.89
[2025-01-08 14:01] VITALS: BP 141/78; PULSE 77; BMI 27.8
--- OUTSIDE RECORDS SUMMARY | 2025-01-08 15:33 | XMS_ITS | Clinical Summary ---
[facility] Address [address] [place] [address] Care Team Providers Care Equipment Operating Engineer Name Role Phone Unavailable Primary Care [...] Last Done Comments Breast Cancer Screening 1960 Colorectal Cancer Screening: Colonoscopy 1962 DTaP,Tdap,and Td Vaccines (1 - Tdap) 1981 Cervical Cancer Screening: P ap Smear 09/15/1983 Pneumococcal Vaccine: 50+ Ye ars (1 of 1 - PCV) 2012 Zoster Vaccines (1 of 2) 2012 HIV Screening 02/01/2022 Hepatitis C Screening 02/01/2022 Social Influencers of Health Screening 02/01/2022 Depression Screening 03/01/2024 COVID-19 Vaccine (1 - 2023-2 5 season) 2024 Influenza Vaccine (#1) 2024 RSV Immunization Adult Patie nts (1 [...]
--- OUTSIDE RECORDS SUMMARY | 2025-01-08 15:34 | XMS_ITS | Clinical Summary ---
Author Organization [facility] Address [address] [place] [address] Care Team Providers Care Strip Polisher Name Role Phone Unavailable Primary Care Provider [...] 12/30 Esophagitis= followed by gastroenterology 2019 Immunizations Immunization Administration Dates Next Due INFLUENZA, SEASONAL, INJECTABLE, [...] 87 06/07/2020 1:10 PM EDT Temperature 37.8 C (100 F) 06/07/2020 1:10 PM EDT Respiratory Rate 16 [...]
== END 2025-01-08 14:26 | disposition home or self-care (01) ==
LOC: HO.HGI 13:28
PROVIDERS: PCP Family Medicine; Visit Provider Internal Medicine Gastroenterology
DX: K21.9 Gastro-esophageal reflux disease without esophagitis (principal); R79.89 Other specified abnormal findings of blood chemistry
CPT/HCPCS: 99213

== ENCOUNTER 2025-01-08 13:28 | Outpatient (REF) | payer MEDICARE, MEDICAID, SELFPAY ==
[2025-01-08 15:18] LABS: MANUAL DIFF FLAG NO
[2025-01-08 15:23] LABS: Hematocrit 34.9 % (37.0-47.0); Hemoglobin 11.7 g/dl (12.0-16.0); Imm Gran Abs Auto 0.02 X10*3/uL (0.00-0.03); Imm Gran Pct Auto 0.3 % (0.0-0.4); Lymphocytes Absolute Auto 2.7 X10*3/uL (1.2-4.9); Mean Corpuscular HGB Conc 33.5 g/dl (31.0-35.0); Mean Corpuscular Hemoglobin 30.9 pg (27.0-33.0); Mean Corpuscular Volume 92.1 fL (80.0-98.0); NRBC Abs Auto 0.000 X10*3/uL (0.0-0.012); NRBC Pct Auto 0.0 /100WBC (0.0-0.2); Platelet Count 365 X10*3/uL (160-400); Red Blood Count 3.79 X10*6/uL (4.20-5.50); White Blood Count 7.3 X10*3/uL (4.8-10.8)
[2025-01-08 15:44] LABS: Alanine Aminotransferase 30 U/L (0-31); Albumin Level 3.9 g/dL (3.5-5.0); Alkaline Phosphatase 92 U/L (39-117); Anion Gap 9 (12-20); Aspartate Amino Transferase 30 U/L (5-31); Blood Urea Nitrogen 22 mg/dL (9-16); Calcium 9.4 mg/dL (8.4-10.2); Carbon Dioxide 28 mmol/L (22-29); Chloride 107 mmol/L (96-108); Estimated Glomerular Filt Rate 58; Potassium 4.3 mmol/L (3.3-5.1); Sodium 140 mmol/L (135-145); Total Protein 7.7 g/dL (6.5-8.0)
[2025-01-08 15:59] LABS: Ferritin 175 ng/mL (10-250)
[2025-01-08 16:13] LABS: Folate 10.8 ng/mL (> or = 4.0); Vitamin B12 333 pg/mL (200-900)
[2025-01-09 20:18] LABS: HCV Log PCR <1.18 NOT DETECTED Log IU/mL (NOT DETECTED); HepC Viral Load <15 NOT DETECTED IU/mL (NOT DETECTED)
[2025-01-13 06:48] LABS: Vit B3 - Nicotinic Acid <20 ng/mL (see note)
[2025-01-14 21:28] LABS: Vitamin B5 (Pantothenic Acid) 43 ng/mL (<275)
== END 2025-01-08 13:29 | disposition home or self-care (01) ==
LOC: HO.LAB 13:28
PROVIDERS: PCP Family Medicine; Visit Provider Internal Medicine Gastroenterology
DX: K21.9 Gastro-esophageal reflux disease without esophagitis (principal); R79.89 Other specified abnormal findings of blood chemistry; K75.81 Nonalcoholic steatohepatitis (NASH); Z13.29 Encounter for screening for other suspected endocrine disorder; Z11.59 Encounter for screening for other viral diseases
CPT/HCPCS: 36415; 80053; 82180; 82306; 82607; 82728; 82746; 84443; 84446; 84590; 84591; 84630; 85025; 86140; 87522; 99212